=== PATIENT | male | born 1950 | race Caucasian/White ===

== ENCOUNTER → 2020-04-19 09:04 | Outpatient (BNVA) | payer MEDICARE, OTHER, SELFPAY | PROVIDERS: PCP Internal Medicine; Visit Provider Urology | DX: N31.9 Neuromuscular dysfunction of bladder, unspecified (principal) | CPT/HCPCS: Q3014 ==

== ENCOUNTER → 2020-11-30 14:38 | Outpatient (BNVA) | payer MEDICARE, OTHER, SELFPAY | PROVIDERS: Visit Provider Urology | DX: R33.9 Retention of urine, unspecified (principal); N31.9 Neuromuscular dysfunction of bladder, unspecified; N40.1 Benign prostatic hyperplasia with lower urinary tract symptoms; N13.8 Other obstructive and reflux uropathy; N52.9 Male erectile dysfunction, unspecified; N48.6 Induration penis plastica; G89.29 Other chronic pain; M54.40 Lumbago with sciatica, unspecified side | CPT/HCPCS: Q3014 ==